=== PATIENT | male | born 1995 | race African-American/Black ===

== ENCOUNTER → 2025-07-14 22:53 | Outpatient (BNV) | payer OTHER, SELFPAY | PROVIDERS: Visit Provider Radiology Diagnostic Radiology | DX: M25.512 Pain in left shoulder (principal); V89.2XXA Person injured in unspecified motor-vehicle accident, traffic, initial encounter | CPT/HCPCS: 73030 ==

== ENCOUNTER 2025-07-14 23:01 | Emergency (ER) | payer OTHER, SELFPAY ==
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
[2025-07-14 23:07] VITALS: BP 163/101; PULSE 103; O2SAT 99
[2025-07-14 23:12] VITALS: BP 155/80; PULSE 89; RESP 18; TEMP 37; O2SAT 96; BMI 32.6
--- OUTSIDE RECORDS SUMMARY | 2025-07-14 23:45 | XMS_ITS | Clinical Summary ---
Author Organization [facility] Address [address] [id number] Phone Care Team Providers Care Learning Coach Name Role Phone Pcp, Unknown Primary Care Provider Unavailabl e Allergies No known active allergies Medications No known medications Social History Tobacco Use Types Packs/Day Years Used Date Smoking Tobacco: Never Assessed Education Answer Date Recorded Are you interested in more education? Not on janak e 01/08/2025 Are you concerned about learning? Not on file 01/08/2025 No 01/08/2025 No 01/08/2025 Digital Access Answer Date Recorded No 01/08/2025 No 01/08/2025 Reliable internet access at home? Not on file 01/08/2025 Device with a working camera? Not on file Intimate Partner Violence Answer Date R ecorded Are you denied basic needs s uch as food, clothing, or medical care? No 01/07/2025 In the past 12 months have y ou been in a relationship with a person who hurts, threatens, or tries to control you? No 01/07/2025 Are you denied basic needs s uch as food, clothing, or medical care? No 01/07/2025 In the past 12 months have y ou been in a relationship with a person who hurts, threatens, or tries to control you? No 01/07/2025 Sex and Gender Information Value Date Recorded Sex Assigned at Male 01/08/2025 1:47 AM EST Legal Sex Male 11:30 PM EST Gender Identity Male 01/08/2025 1:47 AM EST Sexual Orientation Don't know 01/08/2025 1: 47 AM EST Last Filed Vital Signs Vital Sign Reading Time Taken Comments Blood Pressure 146/68 01/08/2025 2:13 AM EST Pulse 83 01/08/2025 2:13 AM EST Temperature 36.4 C (97.5 F) 01/08/2025 2:13 AM EST Respiratory Rate 18 01/08/2025 2:13 AM EST Oxygen Saturation 98% 01/08/2025 2:13 AM EST Inhaled Oxygen Concentration - - Weight 86.2 kg (190 lb) 01/07/2025 11:35 PM EST Height 170.2 cm (5' 7 ) 01/07/2025 11:35 PM EST Body Mass Index 29.76 01/07/2025 11:35 PM EST Plan of Treatment Not on file Medical Devices Not on file Insurance GENERIC COMMERCIAL Member Subscriber Plan / Payer ( fective 2024-Present) Name:Emeka Mena Relation to Subscriber:Self Name:Emeka Mena Payer ID:Not on file Group ID:[id number] Type:Indemnity Address: [address] [place] [address] GENERIC COMMERCIAL Member Subscriber Plan / Payer ( fective 2024-Present) Name:Emeka Mena Relation to Subscriber:Self Name:Emeka Mena Payer ID:Not on file Group ID:[id number] Type:Indemnity Address: [address] [place] [address] GENERIC COMMERCIAL Member Subscriber Plan / Payer ( fective 2024-) Name:Rajesh Emeka Relation to Subscriber:Self Name:Emeka Mena Payer ID:Not on file Group ID:[id number] Type:Indemnity Address: [address] [place] [address] GENERIC COMMERCIAL Member Subscriber Plan / Payer ( fective 2024-) Name:Rajesh Emeka Relation to Subscriber:Self Name:Rajesh Emeka Payer ID:Not on file Group ID:[id number] Type:Indemnity Address: [address] [place] [address] GENERIC COMMERCIAL Member Subscriber Plan / Payer ( fective 2024-) Name:Emeka Mena Relation to Subscriber:Self Name:Emeka Mena Payer ID:Not on file Group ID:[id number] Type:Indemnity Address: [address] [place] [address] GENERIC COMMERCIAL Member Subscriber Plan / Payer (Ef fective 2024-Present) Name:Emeka Mena Relation to Subscriber:Self Name:Emeka Mena Payer ID:Not on file Group ID:[id number] Type:Indemnity Address: [phone] [place] [address] Care Teams Learning Coach Relationship Specialty Start Date End Date Pcp, Unknown PCP - General 01/07/25 Additional Source Comments The information contained in this document represents components of the legal health record. It is not the complete legal health record.[facility]
--- OUTSIDE RECORDS SUMMARY | 2025-07-14 23:45 | XMS_ITS | Clinical Summary ---
Author Organization [facility] Address [address] [place] [address] Phone Care Team Providers Care Door To Door Salesperson Name Role Phone Unavailable Primary Care Provider Unavailabl e Allergies Active Allergy Reactions Criticality Noted Date Comments Shrimp Rash Low 12/02/2019 Medications ibuprofen (ADVIL, MOTRIN) 600 MG tablet Take 1 tablet (600 mg total) by mouth 3 (three) times a day after meals. Take with food. 30 tablet 12/02/2019 Active Acetaminophen (TYLENOL PO) Take by mouth. Active famotidine (PEPCID) 40 MG tablet Take 1 tablet (40 mg total) by mouth nightly. 14 tablet 11/18/2024 Active Active Problems No known active problems Social History Tobacco Use Types Packs/Day Years Used Date Smoking Tobacco: Never Smokeless Tobacco: Never Tobacco Cessation:Counseling Given: Not Answered Alcohol Use Standard Drinks/Week Comments Never 0 (1 standard drink = 0.6 oz pur e alcohol) Sex and Gender Information Value Date Recorded Sex Assigned at Male 12/02/2019 12:53 PM EST Legal Sex Male 4:46 AM EST Gender Identity Male 12/02/2019 12:53 PM EST Sexual Orientation Not on file Last Filed Vital Signs Vital Sign Reading Time Taken Comments Blood Pressure 121/73 01/10/2025 11:33 PM EST Pulse 80 01/10/2025 11:33 PM EST Temperature 36.9 C (98.5 F) 01/10/2025 11:33 PM EST Respiratory Rate 18 01/10/2025 11:33 PM EST Oxygen Saturation 99% 01/10/2025 11:33 PM EST Inhaled Oxygen Concentration - - Weight 81.6 kg (180 lb) 09/07/2023 9:35 PM EDT Height 175.3 cm (5' 9 ) 09/07/2023 9:35 PM EDT Body Mass Index 26.58 09/07/2023 9:35 PM EDT Plan of Treatment Health Maintenance Due Date Last Done Comments HIV SCREENING 1997 HEPATITIS C SCREENING 2015 TDAP/TD VACCINE 03/31/2023 03/31/2013, 12/20/2012, 10/05/2012 COVID VACCINE ( - 2023- season) 2024 HUMAN PAPILLOMA VIRUS (HPV) VACCINE (1 - 3-dose SCDM series) 2024 INFLUENZA VACCINE (#1) 2025 09/21/2023 ZOSTER (SHINGRIX) VACCINE (1 of 2) 2047 HEPATITIS B VACCINE Completed 03/31/2013, 12/20/2012, 10/05/2012 PNEUMOCOCCAL VACCINE Aged Out No long er eligible based on patient's age to complete this topic Additional Source Comments Any HIV related-infromation that has been disclosed to you is from confidential records which are protected by state law. State law prohibits you from making any further disclosure of this HIV-related information without the specific written consent of the person to whom it pertains, or as otherwise permitted by law. Any unauthorized further disclosure in violation of state law may result in a fine or shelter sentence or both. A general authorization for the release of medical or other informationisNOT sufficient authorization for further disclosure.[facility]
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
[2025-07-15 01:39] VITALS: BP 129/73; PULSE 83; RESP 18; TEMP 36; O2SAT 97
== END 2025-07-15 01:41 | disposition home or self-care (01) ==
PROVIDERS: Emergency Provider Emergency Medicine
DX: S13.4XXA Sprain of ligaments of cervical spine, initial encounter (principal); S40.012A Contusion of left shoulder, initial encounter; M25.512 Pain in left shoulder; M54.6 Pain in thoracic spine; M54.2 Cervicalgia; V43.52XA Car driver injured in collision with other type car in traffic accident, initial encounter; Y93.9 Activity, unspecified; Y92.410 Unspecified street and highway as the place of occurrence of the external cause; Y99.8 Other external cause status
CPT/HCPCS: 73030; 96372; 99284; J1885